=== PATIENT | female | born 1955 | race Caucasian/White ===

== ENCOUNTER → 2017-05-13 14:12 | Outpatient (CLI) | payer BC, SELFPAY | PROVIDERS: Family Provider Family Medicine; PCP Family Medicine; Visit Provider Physician Assistant Medical | DX: J02.9 Acute pharyngitis, unspecified (principal) | CPT/HCPCS: 87081 ==

== ENCOUNTER → 2017-07-19 09:15 | Outpatient (CLI) | payer BC, SELFPAY ==
--- NOTE | 2017-07-19 09:25 | RAD_ITS ---
Procedure: Fluoroscopically guided dedicated esophagram including frontal and lateral views of the pharynx/larynx. INDICATIONS: Dysphagia. Patient states it feels like there is a lump in the throat constantly. Atrial syndrome surgery in 2010. TECHNIQUE: The patient easily and readily swallowed effervescent crystals, various density barium and a 12 mm barium pill. FINDINGS: Esophageal motility is normal. There is no esophageal stricture, web or diverticulum. There is no hiatal hernia. No free reflux was observed during the course of the real-time exam. The esophageal mucosal pattern appears normal. Frontal and lateral dedicated cine evaluation of the pharynx/larynx demonstrate symmetric transit of the contrast bolus. There is no mass or mass effect. The mucosal pattern appears normal. The 12 mm barium pill transited easily through the esophagus into the stomach. RAD/Esophagus Only IMPRESSION: No fluoroscopically evident pathology. Fluoroscopy time less than 1 minute. Electronically Signed: Dilshad Cooper MD at 10:50 EDT , Service support ,
== END ==
PROVIDERS: Family Provider Family Medicine; PCP Family Medicine; Visit Provider Otolaryngology
DX: R13.10 Dysphagia, unspecified (principal)
CPT/HCPCS: 74220

== ENCOUNTER → 2018-02-12 12:24 | Outpatient (CLI) | payer BC, SELFPAY ==
--- NOTE | 2018-02-12 12:27 | BI_ITS ---
MAMMOGRAPHY - BILATERAL SCREENING REASON FOR EXAM: Female, 62 years old. Routine annual screening examination. PERTINENT HISTORY: Non-contributory. TECHNIQUE: Digital bilateral breast richard (3D mammographic acquisition) in the CC and MLO projections. 2-D mediolateral oblique (MLO) and craniocaudad (CC) views of both breasts were obtained. CAD: Full Field Digital Mammography with Computer Added Detection was performed. COMPARISON: Comparison is made with prior outside examination dated November 18, 2016. FINDINGS: Breast Composition: There are scattered areas of fibroglandular density. There are no dominant masses or suspicious calcifications. Stable 6.1 mm x 6.1 mm well-defined nodule in the axillary region of the right breast in keeping with a small benign appearing axillary lymph nodes. No other significant abnormalities are identified. There has been no significant change since the prior study. BI/SCREENING MAMM (CAD), BILAT IMPRESSION: Stable bilateral screening mammogram. Yearly follow-up mammogram recommended. (A) ASSESSMENT CATEGORY: BIRADS Category 2: Benign. A letter regarding these results will be sent to the patient by the facility within 30 days. Approximately 10% of breast cancers are not detected by mammography. A normal mammogram should not delay biopsy of a clinically suspicious abnormality. [id number] Electronically Signed: Nathan Hernandez MD at 9:23 EST Tel [phone], Service support ,
== END ==
PROVIDERS: Family Provider Family Medicine; PCP Family Medicine; Referring Provider Obstetrics & Gynecology; Visit Provider Obstetrics & Gynecology
DX: Z12.31 Encounter for screening mammogram for malignant neoplasm of breast (principal)
CPT/HCPCS: 77063; 77067

== ENCOUNTER → 2018-09-04 16:10 | Outpatient (CLI) | payer BC, SELFPAY ==
--- NOTE | 2018-09-04 16:45 | MRI_ITS ---
HISTORY: Lumbar radiculopathy COMPARISON: None. TECHNIQUE: Multisequence multiplanar MR imaging of the lumbar spine was performed per department protocol without IV gadolinium. # of images incl. paperwork: 123 FINDINGS: Transitional lumbosacral anatomy with lumbarized S1 vertebra. Lumbar alignment is within normal limits . No acute fracture or subluxation. Lumbar vertebral bodies are normal in height. Vertebral bodies are unremarkable without significant osteophytosis. No focal marrow signal abnormality to suggest a pathologic process. The conus is identified opposite the L1 level and is normal in morphology and signal characteristics. Mild disc space narrowing with mild disc desiccation at the L4-L5 level. Remaining intervertebral discs are adequate in height and hydration. T12-L1: No disc bulge or disc protrusion. No canal or neural foraminal stenosis. L1-2: No disc bulge or disc protrusion. No canal or neural foraminal stenosis. L2-3: No disc bulge or disc protrusion. No canal or neural foraminal stenosis. L3-4: No disc bulge or disc protrusion. No canal or neural foraminal stenosis. L4-5: Mild posterior disc bulge with 1 mm effacement of the ventral thecal sac. No superimposed disc protrusion. No canal or foraminal stenosis. L5-S1: Mild disc bulge which moderately effaces the ventral epidural fat. No canal or foraminal stenosis. Paravertebral soft tissues show no gross signal abnormalities. MRI/Spine Lumbar (Routine) IMPRESSION: 1. Transitional lumbosacral anatomy with lumbarized S1 vertebra. 2. No canal or foraminal stenosis of lumbar spine. 3. Mild disc bulges at L4-L5 and L5-S1 levels. Otherwise, no significant degenerative changes. at [id number] Reported and signed by: Hector Dale MD Electronically Signed: Hector Dale MD at 3:21 EDT Tel , Service support ,
== END ==
PROVIDERS: Family Provider Family Medicine; PCP Family Medicine; Referring Provider Chiropractor; Visit Provider Chiropractor
DX: M54.16 Radiculopathy, lumbar region (principal)
CPT/HCPCS: 72148

== ENCOUNTER 2018-10-05 19:30 | Observation (INO) | payer BC, SELFPAY ==
[2018-10-05 19:33] VITALS: BP 137/76; PULSE 76; RESP 20; TEMP 36.7; O2SAT 97; BMI 28.1
--- NOTE | 2018-10-05 20:11 | EKG12_ITS ---
Test Reason : POSSIBLE STEMI Blood Pressure : / mmHG Vent. Rate : 076 BPM Atrial Rate : 076 BPM P-R Int : 148 ms QRS Dur : 084 ms QT Int : 382 ms P-R-T Axes : 046 028 038 degrees QTc Int : 429 ms Normal sinus rhythm Normal ECG Confirmed by SORAYA CLOUD, BROCK ([id number]), fan mail editor YAYO WEBER ([id number]) on 10/09/2018 2:18:12 PM Referred By: CYNTHIA Confirmed By:BROCK LIRA MD
[2018-10-05 20:23] LABS: Absolute Lymphocyte Count 2.43 X10^3/ul (0.83-4.51); Absolute Neutrophil Count 5.1 X10^3/uL (2.0-7.7); Basophil# 0.03 X10^3/uL; Basophil% 0.3 % (0-1); Eosinophil# 0.56 X10^3/uL; Eosinophils% 6.5 % (0-5); Hematocrit 40.8 % (37-47); Hemoglobin 13.4 g/dl (12.0-15.0); Lymphocyte # 2.43 X10^3/ul (4.0); Lymphocyte % 28.3 % (19-41); Mean Corp Hgb Conc 32.8 g/gl (32-36); Mean Corpuscular Hgb 28.3 pg (27.0-32.0); Mean Corpuscular Volume 86.1 fL (81-99); Mean Platelet Vol. 9.5 fl (6.2-12.0); Monocyte# 0.45 X10^3/uL; Monocyte% 5.2 % (0-10); Neutrophil % 59.6 % (47-70); POSITIVE COUNT NO; POSITIVE DIFFERENTIAL NO; POSITIVE MORPHOLOGY NO; Platelet Count 298 K/mm3 (150-450); RBC Distribution Width CV 12.4 % (11.6-14.6); RBC Distribution Width SD 38.1 fl (35.1-43.9); Red Blood Count 4.74 M/mm3 (4.2-5.4); White Blood Count 8.6 K/mm3 (4.4-11.0)
[2018-10-05 20:54] LABS: Anion Gap 8 (5-15); BUN 17 mg/dL (7-18); BUN/Creat Ratio 14.9 RATIO (10-20); Calcium,Total 8.9 mg/dL (8.5-10.1); Chloride 101 mmol/L (98-107); Creatinine, Serum 1.14 mg/dL (0.55-1.02); EST Glomerular Filtration Rate 51 mL/min (>60); Est Glom Filt Rate - Afr Amer 62 mL/min (>60); Estimated Creatinine Clearance 44.18 ml/min; Glucose 175 mg/dL (74-106); Potassium 3.4 mmol/L (3.5-5.1); Sodium Level 135 mmol/L (136-145)
[2018-10-05 21:09] VITALS: BP 132/60; BP 145/73; BP 146/62; PULSE 71; PULSE 77; PULSE 85
[2018-10-05] MEDS: 0.9% Normal Saline 1,000 ML 1000 ML IV (21:10)
--- NOTE | 2018-10-05 21:23 | ED.VISSUMM ---
- ER Visit Summary Date of Service: 10/05/18 Chief Complaint: [Syncope] History of Present Illness: The patient is a 63 F [once to the emergency department with a syncopal episode. Patient was at dinner and had just finished eating. Patient has had a half a glass of wine. Patient remembers feeling quite hot and became sweaty and nauseated and passed out. No seizure-like activity noted. Patient did wake up after a few moments and was a little slow to answer. Arrival she just describes will be an upset stomach. She has a mild headache. She is never had syncopal episode like this before. Patient does have a history of hypertension. She denies any chest pain or shortness of breath. She denies any racing heart or palpitations prior to this episode. She denies any painful stimulus.] Physical Examination: [HEENT-PERRLA, EOMI. Cranial nerves II through XII grossly intact. TMs clear. Mucous membranes moist. No adenopathy. Cardiovascular-regular rate and rhythm without murmur or ectopy Lungs-clear to auscultation, chest wall stable without crepitus or subcu emphysema Abdomen-normoactive bowel sounds, soft, nontender, no rebound or rigidity, no peritoneal signs. Extremities-intact ?4, normal range of motion, normal pulses, atraumatic] Test Results: [EKG obtained arrival shows sinus rhythm with a ventricular rate 76 bpm with no acute segment changes. CBC with differential was normal. Chemistries unremarkable. Troponin was less than 0.15.] Orthostatic vital signs were negative. Emergency Department Course and Treatment: [Patient had an IV line established and she was given a liter normal same fluid bolus.] Treatment Plan: [Admit for observation] Disposition: [Admit] Impression: [Syncope-etiology uncertain] This note was generated with [employer] software. It may contain incorrect words, spelling, and punctuation that were not noted in review of the chart prior to signing ED Disposition - Plan for ED Patient: Referrals: Bridger Hillman III, MD [Primary Care Provider] -
[2018-10-05 21:43] VITALS: BP 130/64; PULSE 70; RESP 19; O2SAT 96
[2018-10-05 22:26] VITALS: PULSE 75
--- NOTE | 2018-10-05 22:26 | HP.PCM_ITS ---
Problem List (1) Syncope Status: Acute Qualifiers: Syncope type: vasovagal syncope Qualified Code(s): R55 - Syncope and collapse (2) Hypertension Status: Chronic Qualifiers: Hypertension type: essential hypertension Qualified Code(s): I10 - Essential (primary) hypertension History of Present Illness Date of Admission: 10/05/18 Chief Complaint: Syncope The patient is a 63 year old F with PMHx of Hypertension, who presents with a syncopal episode. She has never had anything like that. She was in her usual state of health and L2 in a restaurant with her family. She had a honey mustard chicken meal. She drank a half a glass of wine. She suddenly felt flushed, dizzy and passed out. She passed out for about 2 to 3 minutes. When she came up she knew where she was. No seizure-like activity noted. Patient denies feeling unwell prior to passing out. She denied being in the sun for a long time. Vitals in the ED showed patient 98.1F, heart rate 76, blood pressure 137/76, respiratory rate is 20, SPO2 is 97% on room air. Admitting blood work showed unremarkable CBC D. Sodium was 135, potassium 3.4, BUN 17, creatinine 1.14, chloride 101, bicarbonate 26, glucose 175. EKG showed normal sinus rhythm Past Medical History Past Medical History (Chronic Problems): Chronic Problems (Last Updated 05/13/17 @ 09:07 by Sera Camara) Hypertension (Chronic) Medical History: Medical History (Last Updated 05/13/17 @ 09:07 by Sera Camara) HTN (hypertension) I10 Allergies No Known Allergies Allergy (Verified 10/05/18 19:38) Home Medications: Ambulatory Orders Medication Instructions Recorded Losartan/Hydrochlorothiazide 1 tab PO DAILY 10/05/18 [Losartan-Hctz 50-12.5 mg Tab] Surgical History: tonsillectomy, - - Bilateral tubal ligation Psychiatric History: No pertinent psych hx RESPIRATORY THERAPY AIDE History: No pertinent RESPIRATORY THERAPY AIDE history Lives: Spouse/ Significant Other Smoking Status: Never smoker Tobacco Use: Non-smoker Alcohol: Occasional Drugs: None - *Family History Maternal History Items: No pertinent history Paternal History Items: No pertinent history Review of Systems Constitutional: Denies: Anorexia, Chills, Fever, Malaise, Weakness, Weight Change, Fatigue Eyes: Denies: Blurred vision, Cataracts, Conjunctivae Inflammation, Pain, Redness, Vision Change HEENT: Denies: Difficulty Hearing, Difficulty Swallowing, Head Aches, Hearing Changes, Sinus Congestion, Sinus Drainage, Sore Throat Cardiovascular: Denies: Chest Pain, Claudication, Orthopnea, Palpitations, Paroxysmal Noc. Dyspnea Respiratory: Denies: Cough, Hemoptysis, Shortness of breath at rest, Shortness of breath upon exertion, Sputum production Gastrointestinal: Denies: Abdominal Pain, Constipation, Hematemesis, Hematochezia, Nausea, Vomiting Genitourinary: Denies: Dysuria, Frequency Musculoskeletal: Denies: Joint Pain, Joint stiffness, Joint swelling, Joint Tenderness Skin: Denies: Pruritis, Rash, Wounds Neurological: Denies: Difficulty swallowing, Focal weakness, Numbness, Tingling Psychiatric: Denies: Anxiety, Depression, Homicidal Ideations, Suicidal Ideations Hematologic/ Lymphatic: Denies: Easy Bruising, Easy Bleeding VTE Information - Inpt Only VTE Present on Admission: No VTE Pharm Prophylaxis ordered?: Yes Patient Problems: Active and Suspected Problems (Last Updated 05/13/17 @ 09:07 by Sera Camara) Syncope (Acute) - Physical Exam General: Alert, Oriented x3, Cooperative, No apparent distress HEENT: Atraumatic, PERRLA, EOMI, Normocephalic Oral: Moist Mucosa Neck: Supple Lungs: Clear to auscultation, Normal air movement Cardiovascular: Regular rate, Regular Rhythm, Normal S1, Normal S2, No murmurs Abdomen: Bowel Sounds Present, Soft, Non Tender, Non-Distended, No Hepato- splenomegaly Extremities: No edema Skin: No rashes, No breakdown Musculoskeletal: No Tenderness to Palpation of Joints or Extremities Lymphatic: No Cervical, Supraclavicular, or Inguinal Adenopathy Neurological: Cranial nerves II-XII grossly intact, Neuro grossly intact Psych/Mental Status: Normal Affect, Appropriate Vital Signs Temp Pulse Resp BP Pulse Ox 98.1 F 70 19 H 130/64 H 96 10/05/18 19:33 10/05/18 21:43 10/05/18 21:43 10/05/18 21:43 10/05/18 21:43 Oxygen Delivery Method Room Air Weight: 74.5 kg Body Mass Index (BMI) 28.1 Laboratory Tests Past 24 Hrs 10/05/18 10/05/18 19:35 19:35 WBC 8.6 RBC 4.74 Hgb 13.4 Hct 40.8 MCV 86.1 MCH 28.3 MCHC 32.8 RDW 12.4 RDW Differential 38.1 Plt Count 298 MPV 9.5 Immature Gran % (Auto) 0.100 Neut % (Auto) 59.6 Lymph % (Auto) 28.3 [place] % (Auto) 5.2 Eos % (Auto) 6.5 H Baso % (Auto) 0.3 Absolute Neuts (auto) 5.1 Absolute Lymphs (auto) 2.43 Total Counted Not Reportable Sodium 135 L Potassium 3.4 L Chloride 101 Carbon Dioxide 26.0 Anion Gap 8 BUN 17 Creatinine 1.14 H Estim Creat Clear Calc 44.18 Est GFR (MDRD) Af Amer 62 Est GFR (MDRD) Non-Af 51 L BUN/Creatinine Ratio 14.9 Glucose 175 H Calcium 8.9 Troponin I < 0.015 Assessment/Plan All Active Problems (Last Updated 05/13/17 @ 09:07 by Sera Camara) Syncope (Acute) 63 year old F with PMHx of Hypertension, who presents with a syncopal episode while in the restaurant. 1. Syncope, likely vasovagal, vitals are stable. EKG shows no acute ST-T changes. Plan: Admit to PCU, monitor on telemetry, gentle IV fluids, trend troponins, 2D echo, orthostatic vitals per Shift 2. Hypokalemia, replaced, would also check for magnesium 3. Acute kidney injury, likely prerenal, patient is on losartan and hydrochlorothiazide, will hold that, continue on IV fluids, Repeat blood work in the a.m. 4. Hypertension, on losartan/hydrochlorothiazide, will hold due to account of #3, continue to monitor vitals, hydralazine as needed 5. DVT prophylaxis with early ambulation Code Visit OBSV E&M: 93000 Initial observation care L3
[2018-10-05 22:30] VITALS: BP 136/64; PULSE 73; RESP 14; TEMP 36.5; O2SAT 96
[2018-10-05 22:35] VITALS: BP 136/64; BP 158/66; BP 168/72; PULSE 74; PULSE 77; PULSE 79
[2018-10-05 22:37] VITALS: BMI 27.1
[2018-10-05 22:43] VITALS: BMI 27.1
[2018-10-05] MEDS: Acetaminophen 325 MG Tablet 650 MG PO (22:58)
[2018-10-05 23:27] LABS: Magnesium 1.9 mg/dL (1.6-2.6)
[2018-10-05] MEDS: 0.9% Normal Saline 1,000 ML 100 ML IV (23:36)
[2018-10-06] VITALS (7 sets, daily range): BP systolic 127–148; BP diastolic 57–81; PULSE 63–83; RESP 16–18; TEMP 36.6–36.7; O2SAT 96–100
--- NOTE | 2018-10-06 05:55 | ECHOD_ITS ---
Reason For Study: Syncope/Near Syncope Procedure This was a 2D Doppler, Color Flow transthoracic echocardiogram. Exam performed portable in patient room. Left Ventricle Normal LV size. The estimated ejection fraction is 60 %. Stage 1 diastolic dysfunction. No regional wall motion abnormalities noted. Right Ventricle Normal RV size. Normal systolic function. Atria Normal left atrium. Normal right atrium. Mitral Valve Normal mitral valve. Tricuspid Valve Normal tricuspid valve. Mild tricuspid valve insufficiency. Pulmonary artery systolic pressure is 19 mmHg. Aortic Valve Normal aortic valve. Pulmonic Valve Normal pulmonic valve. Great Vessels Normal aortic root. The pulmonary artery is normal size. Normal inferior vena cava. Pericardium/Pleural No pericardial effusion. MMode/2D Measurements & Calculations LVIDd: 3.8 cm IVSd: 1.0 cm Ao root diam: 2.9 cm LVIDs: 2.6 cm LVPWd: 0.90 cm RVDd: 3.5 cm FS: 31.4 % LAV(MOD-bp): 40.1 ml LVAd ap4: 18.1 cm2 SV(MOD-sp4): 27.8 ml LAV(MOD-bp) Indexed: 22.6 ml/m2 EDV(MOD-sp4): 40.1 ml LAV(MOD-sp2): 49.2 ml EDV(sp4-el): 40.7 ml LAV(MOD-sp4): 29.6 ml LVAs ap4: 8.6 cm2 ESV(MOD-sp4): 12.3 ml ESV(sp4-el): 12.4 ml EF(MOD-sp4): 69.3 % EF(sp4-el): 69.4 % SV(sp4-el): 28.2 ml LA A4 area: 13.9 cm2 LA dimension(2D): 3.0 cm RA A4 area: 11.6 cm2 Doppler Measurements & Calculations MV E max serjio: 90.2 cm/sec Lat Peak E' Serjio: 9.0 cm/sec Med Peak E' Serjio: 7.9 cm/sec MV A max serjio: 100.0 cm/sec E/E' lat: 10.1 E/E' med: 11.4 MV E/A: 0.90 Ao V2 max: 118.4 cm/sec LV V1 max: 93.2 cm/sec PA V2 max: 72.5 cm/sec Ao max P.6 mmHg LV V1 max P.5 mmHg Ao V2 mean: 74.4 cm/sec Ao mean P.5 mmHg Ao V2 VTI: 25.6 cm TR max serjio: 191.0 cm/sec TR max P.6 mmHg Interpretation Summary Normal LV size. The estimated ejection fraction is 60 %. Stage 1 diastolic dysfunction. Structurally normal valves. Ordering Physician: Krista Villeda Referring Physician: Bridger Hillman Performed By: Loan Pond RDCS, RVT
[2018-10-06] MEDS: Magnesium Sulfate 1 GM in 0.9% Normal Saline 100 ML IV (07:10)
[2018-10-06 07:12] LABS: Anion Gap 10 (5-15); BUN 16 mg/dL (7-18); Calcium,Total 8.4 mg/dL (8.5-10.1); Chloride 110 mmol/L (98-107); EST Glomerular Filtration Rate 77 mL/min (>60); Est Glom Filt Rate - Afr Amer 93 mL/min (>60); Estimated Creatinine Clearance 62.96 ml/min; Glucose 114 mg/dL (74-106); Sodium Level 144 mmol/L (136-145)
[2018-10-06] MEDS: 0.9% Normal Saline 1,000 ML 100 ML IV (12:11)
--- NOTE | 2018-10-06 13:52 | PN_ITS ---
Patient Problems: Active and Suspected Problems (Last Updated 05/13/17 @ 09:07 by Sera Camara) Syncope (Acute) Subjective: He was better. Patient said that she was not feel well when she was eating her chicken which was just had an odd taste to her today and was too sweet. No further events since she is been here. Never any other events like this before. Vitals/I&O's: Vital Signs Temp Pulse Resp BP Pulse Ox 36.7 C 65 18 148/69 H 97 10/06/18 09:15 10/06/18 09:15 10/06/18 09:15 10/06/18 09:15 10/06/18 09:15 Oxygen Delivery Method Room Air Weight: 71.7 kg Body Mass Index (BMI) 27.1 Orthostatic Vital Signs Start: 10/05/18 22:31 Freq: q24h Status: Active Protocol: Activity Type Activity Date Activity User E-Sign Co-Sign Detail Recorded Client Recorded Date Recorded By Document 10/06/18 04:37 AR [id number] 10/06/18 04:41 AR 10/06/18 04:37 Orthostatic Vitals Standing -Blood Pressure (90/60-120/80) 131/61 H -Extremity Use Left Arm -Pulse Rate (60-100) 73 Sitting -Blood Pressure (90/60-120/80) 127/57 H -Extremity Use Left Arm -Pulse Rate (60-100) 74 Lying -Blood Pressure (90/60-120/80) 132/62 H -Extremity Use Left Arm -Pulse Rate (60-100) 63 Intake and Output for Last 24 Hours 10/04/18 10/05/18 10/06/18 23:59 23:59 23:59 Intake Total 480 / 480 190 / 190 Balance 480 / 480 [id number] General: Alert, No apparent distress HEENT: Atraumatic, Normocephalic Oral: Moist Mucosa, No Gingival or Mucosal Lesions/ Ulcerations Neck: No Nodes, Thyroid Normal Size and Texture Lungs: Clear to auscultation, Normal air movement, No rhonchi, No wheeze, No rales Cardiovascular: Regular rate, Regular Rhythm, Normal S1, Normal S2, No murmurs Abdomen: Bowel Sounds Present, Soft, Non Tender, Non-Distended, No Hepato- splenomegaly Extremities: No edema, No Calf Tenderness Psych/Mental Status: Normal Affect, Appropriate Laboratory Results 10/05/18 19:35: WBC 8.6, RBC 4.74, Hgb 13.4, Hct 40.8, MCV 86.1, MCH 28.3, MCHC 32.8, RDW 12.4, RDW Differential 38.1, Plt Count 298, MPV 9.5, Immature Gran % (Auto) 0.100, Neut % (Auto) 59.6, Lymph % (Auto) 28.3, [place] % (Auto) 5.2, Eos % (Auto) 6.5 H, Baso % (Auto) 0.3, Absolute Neuts (auto) 5.1, Absolute Lymphs (auto) 2.43, Total Counted Not Reportable 10/05/18 19:35: Sodium 135 L, Potassium 3.4 L, Chloride 101, Carbon Dioxide 26.0, Anion Gap 8, BUN 17, Creatinine 1.14 H, Estim Creat Clear Calc 44.18, Est GFR (MDRD) Af Amer 62, Est GFR (MDRD) Non-Af 51 L, BUN/Creatinine Ratio 14.9, Glucose 175 H, Calcium 8.9, Troponin I < 0.015 10/05/18 23:00: Magnesium 1.9 10/05/18 23:00: Troponin I < 0.015 10/06/18 02:00: Troponin I < 0.015 10/06/18 02:00: Sodium 144, Potassium 4.0, Chloride 110 H, Carbon Dioxide 24.0, Anion Gap 10, BUN 16, Creatinine 0.80, Estim Creat Clear Calc 62.96, Est GFR (MDRD) Af Amer 93, Est GFR (MDRD) Non-Af 77, BUN/Creatinine Ratio 20.0, Glucose 114 H, Calcium 8.4 L Current Medications Sodium Chloride () 1,000 mls @ 100 mls/hr IV .Q10H ELEANOR Last Admin: 10/06/18 12:11 Dose: 100 mls/hr Documented by: Magnesium Hydroxide (Milk Of Magnesia) 30 ml PO DAILY PRN PRN Reason: Constipation Ondansetron HCl (Zofran) 4 mg IV Q8H PRN PRN PRN Reason: NAUSEA/VOMITING Sodium Chloride () 10 - 40 ml IV UD PRN PRN Reason: SALINE FLUSH Medical Necessity - Tobacco Use Smoking Status: Never smoker Tobacco Use: Non-smoker Assessment/Plan All Active Problems (Last Updated 05/13/17 @ 09:07 by Sera Camara) Syncope (Acute) 1. Syncope Likely vasovagal related to eating some of the just did not taste right to her plus some mild dehydration and possibly alcohol as well. I did advise any change to her therapy moving forward being this is isolated event and likely the etiology is multifactorial. Echocardiogram performed and results which are still pending at this time but if that is normal then anticipate the patient being discharged today. Code Visit OBSV E&M: 00579 Subsequent observation care L2
--- NOTE | 2018-10-06 13:54 | DCINST_ITS ---
- Discharge Diagnoses Current Active Problems: Current Active and Chronic Problems (Last Updated 05/13/17 @ 09:07 by Sera Camara) Syncope (Acute) Hypertension (Chronic) You will use the following diet at home:: No restrictions Your food should be the consistency of: Regular Your liquids should be the consistency of: Regular/Thin Call your doctor if you observe: Fainting spells Allergies/Adverse Reactions: Allergies No Known Allergies Allergy (Verified 10/05/18 19:38) Medications to take at Discharge Losartan/Hydrochlorothiazide [Losartan-Hctz 50-12.5 mg Tab] 1 tab PO DAILY 0 10/05/18 Primary Care Physician: Bridger Hillamn III, MD [Primary Care Provider] - Within 1 Week Test Results: Test results from this visit will be discussed in further detail at your follow- up appointment, if applicable. Proposed Discharge Date: 10/06/18
--- NOTE | 2018-10-06 13:56 | PCM.DC.SUM ---
Discharge Date and Diagnosis - Problem List Patient Problems: Active and Suspected Problems (Last Updated 05/13/17 @ 09:07 by Sera Camara) Syncope (Acute) Date of Admission: 10/05/18 Date of Discharge: 10/06/18 - Primary Discharge Diagnosis Active and Suspected Problems (Last Updated 05/13/17 @ 09:07 by Sera Camara) Syncope (Acute) - Secondary Discharge Diagnosis Chronic Problems (Last Updated 05/13/17 @ 09:07 by Sera Camara) Hypertension (Chronic) Hospital Course and Treatment Imaging Results: 10/06/18 05:55 Echo Complete [ECHO] AM (NON MEDS) Operations: None Procedures: 2-D Echocardiogram Summary of Care Provided: The patient is a 63 year old F sense of syncope while at a restaurant. Patient was eating chicken that did not taste her right to her. Patient was out for couple minutes no tonic-clonic activity was noted. Patient was evaluated, and orthostatic vital signs and work-up was thus far negative. Echocardiogram was performed results of which are still pending at time of this dictation. I feel the etiology of her syncope is multifactorial, possibly with a eating so that just did not sit right with her plus some dehydration and some alcohol although patient states she only drank part of a glass of wine. If echocardiogram is unremarkable, plan is for the patient be discharged home without any additional work-up necessary at this time. [] Patient Problems: Active and Suspected Problems (Last Updated 05/13/17 @ 09:07 by Sera Camara) Syncope (Acute) - Physical Exam Vital Signs Temp Pulse Resp BP Pulse Ox 36.7 C 65 18 148/69 H 97 10/06/18 09:15 10/06/18 09:15 10/06/18 09:15 10/06/18 09:15 10/06/18 09:15 Oxygen Delivery Method Room Air Weight: 71.7 kg Body Mass Index (BMI) 27.1 Orthostatic Vital Signs Start: 10/05/18 22:31 Freq: q24h Status: Active Protocol: Activity Type Activity Date Activity User E-Sign Co-Sign Detail Recorded Client Recorded Date Recorded By Document 10/06/18 04:37 AR [id number] 10/06/18 04:41 AR 10/06/18 04:37 Orthostatic Vitals Standing -Blood Pressure (90/60-120/80) 131/61 H -Extremity Use Left Arm -Pulse Rate (60-100) 73 Sitting -Blood Pressure (90/60-120/80) 127/57 H -Extremity Use Left Arm -Pulse Rate (60-100) 74 Lying -Blood Pressure (90/60-120/80) 132/62 H -Extremity Use Left Arm -Pulse Rate (60-100) 63 Intake and Output for Last 24 Hours 10/04/18 10/05/18 10/06/18 23:59 23:59 23:59 Intake Total 480 / 480 1906 / 1906 Balance 480 / 480 1906 / 1906 Laboratory Tests Past 24 Hrs 10/05/18 10/05/18 10/05/18 19:35 19:35 23:00 WBC 8.6 RBC 4.74 Hgb 13.4 Hct 40.8 MCV 86.1 MCH 28.3 MCHC 32.8 RDW 12.4 RDW Differential 38.1 Plt Count 298 MPV 9.5 Immature Gran % (Auto) 0.100 Neut % (Auto) 59.6 Lymph % (Auto) 28.3 [place] % (Auto) 5.2 Eos % (Auto) 6.5 H Baso % (Auto) 0.3 Absolute Neuts (auto) 5.1 Absolute Lymphs (auto) 2.43 Total Counted Not Reportable Sodium 135 L Potassium 3.4 L Chloride 101 Carbon Dioxide 26.0 Anion Gap 8 BUN 17 Creatinine 1.14 H Estim Creat Clear Calc 44.18 Est GFR (MDRD) Af Amer 62 Est GFR (MDRD) Non-Af 51 L BUN/Creatinine Ratio 14.9 Glucose 175 H Calcium 8.9 Magnesium 1.9 Troponin I < 0.015 10/05/18 10/06/18 10/06/18 23:00 02:00 02:00 WBC RBC Hgb Hct MCV MCH MCHC RDW RDW Differential Plt Count MPV Immature Gran % (Auto) Neut % (Auto) Lymph % (Auto) [place] % (Auto) Eos % (Auto) Baso % (Auto) Absolute Neuts (auto) Absolute Lymphs (auto) Total Counted Sodium 144 Potassium 4.0 Chloride 110 H Carbon Dioxide 24.0 Anion Gap 10 BUN 16 Creatinine 0.80 Estim Creat Clear Calc 62.96 Est GFR (MDRD) Af Amer 93 Est GFR (MDRD) Non-Af 77 BUN/Creatinine Ratio 20.0 Glucose 114 H Calcium 8.4 L Magnesium Troponin I < 0.015 < 0.015 Discharge Diet: No Restrictions Call your doctor if you observe: Fainting spells Home Medications: Medications to take at Discharge Losartan/Hydrochlorothiazide [Losartan-Hctz 50-12.5 mg Tab] 1 tab PO DAILY 10/05/18 Primary Care Physician: Bridger Hillman III, MD [Primary Care Provider] - Within 1 Week Disposition: Home Minutes spent on discharge:: 25 Patient Condition:: Good Medical Necessity - Tobacco Use Smoking Status: Never smoker Tobacco Use: Non-smoker Meaningful Use Info Meaningful Use Diagnoses (Choose all that apply): None applicable Code Visit OBSV E&M: 44796 Observation care discharge
== END 2018-10-06 13:55 | disposition home or self-care (01) ==
LOC: ED 20:24 → PCU 21:35
PROVIDERS: Admitting Provider Internal Medicine; Emergency Provider Emergency Medicine; Family Provider Family Medicine; PCP Family Medicine
DX: R55 Syncope and collapse (principal); I10 Essential (primary) hypertension; E86.0 Dehydration; E87.6 Hypokalemia; N17.9 Acute kidney failure, unspecified; Z79.899 Other long term (current) drug therapy
CPT/HCPCS: 36415; 80048; 83735; 84484; 85025; 93005; 93306; 96360; 96361; 99218; 99285; J7030; A4216; G0378

== ENCOUNTER → 2019-03-11 10:29 | Outpatient (CLI) | payer BC, SELFPAY ==
[2019-03-11 12:28] LABS: Absolute Lymphocyte Count 1.75 X10^3/uL (0.83-4.51); Absolute Neutrophil Count 3.2 X10^3/uL (2.0-7.7); Basophil# 0.04 X10^3/uL; Basophil% 0.7 % (0-1); Eosinophil# 0.28 X10^3/uL; Eosinophils% 4.9 % (0-5); Hematocrit 42.2 % (37-47); Hemoglobin 13.8 g/dL (12.0-15.0); Lymphocyte # 1.75 X10^3/ul (4.0); Lymphocyte % 30.9 % (19-41); Mean Corp Hgb Conc 32.7 g/dL (32-36); Mean Corpuscular Hgb 28.8 pg (27.0-32.0); Mean Corpuscular Volume 88.1 fL (81-99); Mean Platelet Vol. 10.6 fl (6.2-12.0); Monocyte# 0.42 X10^3/uL; Monocyte% 7.4 % (0-10); NRBC Flagged by Analyzer 0 % (0-5); Neutrophil # 3.16 X10^3/uL (2.7-7.7); Neutrophil % 55.9 % (47-70); POSITIVE COUNT YES; Platelet Count 292 K/mm3 (150-450); RBC Distribution Width SD 38.7 fl (35.1-43.9); Red Blood Count 4.79 M/mm3 (4.2-5.4); White Blood Count 5.7 K/mm3 (4.4-11.0)
[2019-03-11 12:33] LABS: Differential Indicated SCAN CRITERIA MET
[2019-03-11 13:03] LABS: Rheumatoid Factor < 10.0 IU/mL (<15)
[2019-03-11 13:04] LABS: Platelet Estimate ADEQUATE (ADEQ); Red Cell Morphology NORM C+C NORMAL (NORM C&C)
[2019-03-12 16:07] LABS: Cytoplasmic Ab (C-ANCA) <1:20 titer (Neg:<1:20)
[2019-03-12 16:27] LABS: Angiotensin Convert Enzyme 58 U/L (14-82); Perinuclear Ab (P-ANCA) <1:20 titer (Neg:<1:20)
[2019-03-19 16:09] LABS: SJOGREN'S Anti-SS-A test < 0.2; SJOGREN'S Anti-SS-B test < 0.2
== END ==
PROVIDERS: Family Provider Family Medicine; PCP Family Medicine; Referring Provider Otolaryngology; Visit Provider Otolaryngology
DX: K11.7 Disturbances of salivary secretion (principal)
CPT/HCPCS: 36415; 82164; 85025; 86038; 86235; 86256; 86431

== ENCOUNTER → 2019-04-03 11:18 | Outpatient (CLI) | payer BC, SELFPAY ==
[2019-04-03 14:26] LABS: Erythrocyte Sedimentation Rate 7 mm/hr (0-30)
== END ==
PROVIDERS: Family Provider Family Medicine; PCP Family Medicine; Referring Provider Otolaryngology; Visit Provider Otolaryngology
DX: K11.7 Disturbances of salivary secretion (principal)
CPT/HCPCS: 85652

== ENCOUNTER → 2019-05-08 12:48 | Outpatient (CLI) | payer BC, SELFPAY ==
--- NOTE | 2019-05-08 12:52 | BI_ITS ---
MAMMOGRAPHY - BILATERAL SCREENING REASON FOR EXAM: Female, 64 years old. Routine annual screening examination. PERTINENT HISTORY: Non-contributory. TECHNIQUE: Digital bilateral breast jennifer (3D mammographic acquisition) in the CC and MLO projections. 2-D mediolateral oblique (MLO) and craniocaudad (CC) views of both breasts were obtained. CAD: Full Field Digital Mammography with Computer Added Detection was performed. COMPARISON: Comparison is made with prior examination dated February 12, 2018. FINDINGS: Breast Composition: There are scattered areas of fibroglandular density. There are no dominant masses or suspicious calcifications. Stable benign-appearing bilateral axillary lymph nodes. Stable 6.1 mm x 6.1 mm well-defined nodule in the upper deep lateral aspect of the right breast. This most likely represents a small lymph node. No other significant abnormalities are identified. There has been no significant change since the prior study. BI/SCREEN MAMM (CAD) W/JENNIFER BILAT IMPRESSION: Stable bilateral screening mammogram. Yearly follow-up mammogram recommended. (A) ASSESSMENT CATEGORY: BIRADS Category 2: Benign. A letter regarding these results will be sent to the patient by the facility within 30 days. Approximately 10% of breast cancers are not detected by mammography. A normal mammogram should not delay biopsy of a clinically suspicious abnormality. [id number] Electronically Signed: Nathan David, at 14:14 EST , Service support ,
[2019-05-13 09:36] LABS: Age Gdln ACOG Testing 30-65 (.)
[2019-05-13 14:53] LABS: HPV APTIMA, High Risk Negative (Negative)
[2019-05-13 14:54] LABS: HPV Reflexed? YES, CHARGE PATIENT
== END ==
PROVIDERS: PCP Family Medicine; Referring Provider Obstetrics & Gynecology; Visit Provider Obstetrics & Gynecology
DX: Z12.31 Encounter for screening mammogram for malignant neoplasm of breast (principal); Z12.4 Encounter for screening for malignant neoplasm of cervix
CPT/HCPCS: 77063; 77067; 87624; 88175; G0145

== ENCOUNTER → 2020-08-31 | Outpatient (CLI) | payer OTHER, SELFPAY | END | disposition home or self-care (01) | LOC: LABSPEC 15:42 | PROVIDERS: Referring Provider Otolaryngology; Visit Provider Otolaryngology | DX: J02.9 Acute pharyngitis, unspecified (principal) | CPT/HCPCS: 87070 ==

== ENCOUNTER → 2020-10-02 16:43 | Outpatient (CLI) | payer OTHER, SELFPAY ==
--- NOTE | 2020-10-02 16:47 | CT_ITS ---
STUDY: CT SOFT TISSUE NECK WITH CONTRAST REASON FOR EXAM: Female, 65 years old. THROAT PAIN/GERD RADIATION DOSAGE (If Supplied By Facility): CTDIvol = ( 14.80 ) mGy, DLP = ( 454.68 ) mGycm TECHNIQUE: The patient was scanned in a multi-detector CT scanner. High resolution transaxial imaging was performed following intravenous administration of IV 75mL Isovue-370. Sagittal and coronal images were reconstructed. Individualized dose optimization techniques were used for this CT. COMPARISON: None. FINDINGS: The bilateral globes are intact. Visualized brain parenchyma is unremarkable. The bilateral globes are intact. The airway is patent. Epiglottis is of normal contour and size. The bilateral submandibular and parotid glands are intact. No cervical adenopathy is seen. The vascular structures are patent. Tiny hypodense nodules are noted throughout the thyroid gland. Upper lungs are clear. There is mild multilevel cervical spondylosis. CT/Soft Tissue Neck WITH Contrast IMPRESSION: No acute finding in the neck. Multiple tiny thyroid nodules, amenable to further evaluation by ultrasound. Electronically Signed: Lokesh Beavers MD at 16:37 EDT Tel , Service support ,
[2020-10-02 17:00] LABS: CREATININE FINGERSTICK 0.6 mg/dL (0.55-1.02); EGFR FINGERSTICK > 60.0000 mL/min (>60)
== END ==
PROVIDERS: PCP Nurse Practitioner Family; Referring Provider Otolaryngology; Visit Provider Otolaryngology
DX: K21.9 Gastro-esophageal reflux disease without esophagitis (principal); R07.0 Pain in throat
CPT/HCPCS: 70491; Q9967

== ENCOUNTER → 2021-02-08 10:20 | Outpatient (CLI) | payer OTHER, SELFPAY ==
--- NOTE | 2021-02-08 10:23 | BI_ITS ---
MAMMOGRAPHY - BILATERAL SCREENING REASON FOR EXAM: Female, 65 years old. Routine annual screening examination. PERTINENT HISTORY: Non-contributory. TECHNIQUE: Digital bilateral breast jennifer (3D mammographic acquisition) in the CC and MLO projections. 2-D mediolateral oblique (MLO) and craniocaudad (CC) views of both breasts were obtained. CAD: Full Field Digital Mammography with Computer Added Detection was performed. COMPARISON: Comparison is made with prior study dated 05/08/2019 and 02/12/2018. FINDINGS: Breast Composition: There are scattered areas of fibroglandular density. There are no dominant masses or suspicious calcifications. Stable 6 mm nodular density in the deep upper lateral aspect of the right breast suggestive of a small lymph node. Stable small benign appearing bilateral axillary nodes. No other significant abnormalities are identified. There has been no significant change since the prior study. BI/SCRN MAMM (CAD)W/JENNIFER BILAT IMPRESSION: Stable bilateral screening mammogram. Yearly follow-up mammogram recommended. (A) ASSESSMENT CATEGORY: BIRADS Category 2: Benign. A letter regarding these results will be sent to the patient by the facility within 30 days. Approximately 10% of breast cancers are not detected by mammography. A normal mammogram should not delay biopsy of a clinically suspicious abnormality. [id number] Electronically Signed: Nathan Hernandez MD at 11:15 EST , Service support ,
== END ==
PROVIDERS: PCP Nurse Practitioner Family; Visit Provider Student in an Organized Health Care Education/Training Program
DX: Z12.31 Encounter for screening mammogram for malignant neoplasm of breast (principal)
CPT/HCPCS: 77063; 77067

== ENCOUNTER → 2023-12-22 | Outpatient (CLI) | payer MEDICARE, SELFPAY ==
[2023-12-22 16:15] LABS: Absolute Lymphocyte Count 2.55 X10^3/uL (0.83-4.51); Absolute Neutrophil Count 4.1 X10^3/uL (2.0-7.7); Basophil# 0.05 X10^3/uL; Basophil% 0.7 % (0-1); Hematocrit 42.5 % (37-47); Hemoglobin 13.5 g/dL (12.0-15.0); Lymphocyte # 2.55 X10^3/ul (0.83-4.51); Lymphocyte % 33.7 % (19-41); Mean Corp Hgb Conc 31.8 g/dL (32-36); Mean Corpuscular Hgb 28.2 pg (27.0-32.0); Mean Corpuscular Volume 88.7 fL (81-99); Mean Platelet Vol. 9.1 fl (6.2-12.0); Monocyte# 0.56 X10^3/uL; Monocyte% 7.4 % (0-10); NRBC Flagged by Analyzer 0 % (0-5); Neutrophil # 4.08 X10^3/uL (2.7-7.7); Neutrophil % 53.9 % (47-70); Platelet Count 312 K/mm3 (150-450); RBC Distribution Width CV 12.4 % (11.6-14.6); Red Blood Count 4.79 M/mm3 (4.2-5.4); White Blood Count 7.6 K/mm3 (4.4-11.0)
[2023-12-22 16:41] LABS: ALB/GLOB Ratio 1.1 RATIO (0.9-2.4); AST(SGOT) 20 U/L (15-37); Alanine Aminotransfer ALT/SGPT 32 U/L (13-56); Alkaline Phosphatase 83 U/L (45-117); Anion Gap 3 (5-15); BUN 13 mg/dL (7-18); BUN/Creat Ratio 16.1 RATIO (10-20); CRP < 2.90 mg/L (0.0-3.0); Calcium,Total 9.9 mg/dL (8.5-10.1); Chloride 103 mmol/L (98-107); Creatinine, Serum 0.81 mg/dL (0.55-1.02); EST Glomerular Filtration Rate 75 mL/min (>60); Est Glom Filt Rate - Afr Amer 91 mL/min (>60); Free T3 2.7 pg/mL (2.18-3.98); Globulin 3.7 g/dL (2.2-4.2); Glucose 96 mg/dL (74-106); LDH 196 U/L (84-246); Potassium 4.1 mmol/L (3.5-5.1); Protein, Total 7.7 g/dL (6.4-8.2); Sodium Level 135 mmol/L (136-145); T4 Free Direct 0.86 ng/dL (0.76-1.46)
[2023-12-22 16:50] LABS: Erythrocyte Sedimentation Rate 6 mm/hr (0-30)
[2023-12-28 00:06] LABS: ACCA 2 units (0-90); ALCA 8 units (0-60); AMCA 24 units (0-100); Alpha-1-Globulins 0.2 g/dL (0.0-0.4); Alpha-2-Globulins 0.8 g/dL (0.4-1.0); Anti-Centromere B Ab <0.2 AI (0.0-0.9); Anti-Chromatin <0.2 AI (0.0-0.9); Anti-Jo <0.2 AI (0.0-0.9); Anti-Scleroderma-70 AB <0.2 AI (0.0-0.9); Anti-dsDNA Ab 1 IU/mL (0-9); Beef 0.19 kU/L (Class 0/I); Chocolate <0.10 kU/L (Class 0); Codfish <0.10 kU/L (Class 0); Corn 0.37 kU/L (Class I); Cytoplasmic Ab (C-ANCA) <1:20 titer (Neg:<1:20); Egg, Whole 2.27 kU/L (Class III); Endomysial Antibody IgA Negative (Negative); Gamma Globulin 1.1 g/dL (0.4-1.8); Immunoglobulin A 164 mg/dL (87-352); Immunoglobulin E 659 IU/mL (6-495); Immunoglobulin G 1136 mg/dL (586-1602); Immunoglobulin M 107 mg/dL (26-217); Milk (Cow) 1.81 kU/L (Class III); Mussels <0.10 kU/L (Class 0); PROEL- TOTAL PROTEIN 7.2 g/dL (6.0-8.5); Peanut 1.43 kU/L (Class III); Perinuclear Ab (P-ANCA) <1:20 titer (Neg:<1:20); Pork <0.10 kU/L (Class 0); RNP Ab <0.2 AI (0.0-0.9); SJOGREN'S Anti-SS-A test < 0.2 AI (0.0-0.9); SJOGREN'S Anti-SS-B test < 0.2 AI (0.0-0.9); Salmon <0.10 kU/L (Class 0); Shrimp <0.10 kU/L (Class 0); Smith Ab <0.2 AI (0.0-0.9); Soybean 0.71 kU/L (Class II); Tuna <0.10 kU/L (Class 0); Wheat 1.23 kU/L (Class II); gASCA 12 units (0-50); t-Transglutaminase IgA <2 U/mL (0-3)
== END | disposition home or self-care (01) ==
LOC: LAB 15:24
PROVIDERS: PCP Nurse Practitioner Family
DX: K22.4 Dyskinesia of esophagus (principal); E03.9 Hypothyroidism, unspecified
CPT/HCPCS: 36415; 80053; 82784; 82785; 83516; 83615; 84165; 84439; 84443; 84481; 85025; 85652; 86003; 86005; 86036; 86140; 86225; 86235; 86255; 86256; 86334; 86671

== ENCOUNTER 2024-05-28 12:19 | Day surgery (SDC) | payer MEDICARE, SELFPAY ==
--- NOTE | 2024-05-23 21:56 | PAT.ANE_ITS ---
Pre-Assessment Diagnosis/Proposed Procedure Planned Operative Procedure(s): EGD Anesthesia History Anesthesia History - mental health practitioner: Anesthesia History - mental health practitioner Hx Hospitalization No 05/23/24 14:58 Any Problems With Anesthesia No 05/23/24 14:58 Cholinesterase deficiency No 05/23/24 14:58 You/Your Family Experience No 05/23/24 14:58 fever (hyperthermia) with Relationship Recent Exposure to Contagious No 03/02/16 15:55 Disease Does patient have nerve No 05/23/24 14:58 stimulator Patient instructed to have device shut off --Does patient have Pacemaker or ICD? When Was Last Pacemaker Check QUESTION #4 FULL TEXT: You/Your Family Experience fever (hyperthermia) with Anesthesia Last Oral Intake Last Oral intake: Last Oral Intake NPO since Meds taken in AM with sips of water? Meds patient instructed to take am of surgery PONV PONV - mental health practitioner: PONV - mental health practitioner Female Yes 05/23/24 14:58 HX of Motion Sickness No 05/23/24 14:58 HX of N/V After Surgery No 05/23/24 14:58 Non-Smoker Yes 05/23/24 14:58 Duration of Surgery greater No 05/23/24 14:58 than 60 minutes Number of Risk Factors 2 05/23/24 14:58 PONV Score Moderate Risk 05/23/24 14:58 Height & Weight Height & Weight: Anesthesia: Height & Weight Height 5 ft 4 in 08/18/22 09:43 Respiratory Assessment Respiratory Assessment - mental health practitioner: Respiratory Tract Infection Hx - mental health practitioner Hx Respiratory Tract Infection No 05/23/24 14:58 STOP Sleep Apnea STOP Sleep Apnea - mental health practitioner: STOP Sleep Apnea - mental health practitioner Hx Hypertension Yes: per pt, controlled on 05/23/24 14:58 meds Hx Sleep Apnea No 05/23/24 14:58 CPAP BIPAP Do you snore loudly (louder No 05/23/24 14:58 than talking or can be heard Do you often feel tired/ No 05/23/24 14:58 fatigued/ sleepy during daytime? Has anyone observed you stop No 05/23/24 14:58 breathing during sleep? STOP Results Negative 05/23/24 14:58 QUESTION #5 FULL TEXT : Do you snore loudly (louder than talking or can be heard through closed doors)? 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 Specify any problems Hx of Preganancy in last 3 No 05/23/24 14:58 Months Nurse Filling Out Transfusion MGRIALYSSAITH 05/23/24 14:58 & Questions: Date: 05/23/24 05/23/24 14:58 Time: 15:02 05/23/24 14:58 Patient unable to answer at this time (ie. confused, unrespo /Reproduction History /Reproductive History - mental health practitioner: /Reproductive Hx- mental health practitioner Hx Now No 05/23/24 14:58 Gestational Age (in weeks): EDC: Hx Hx Para Hx Section SAB No 05/23/24 14:58 [facility] Medical History (Updated 05/23/24 @ 15:10 by Lanette Rothman) History of echocardiogram Wears glasses High cholesterol Difficulty swallowing Gastric reflux Shortness of breath on exertion Non-smoker Hoarseness [place]'s syndrome History of deviated nasal septum Syncope HTN (hypertension) Home Medications ?Medication ?Instructions ?Recorded ?Last Taken ?Type losartan 50 mg tablet 50 mg PO DAILY 08/18/22 Unkn own History multivitamin 1 tab PO DAILY 08/18/22 Unkn own History omeprazole 40 mg capsule,delayed 40 mg PO DAILY Unknown History release pravastatin 20 mg tablet 20 mg PO QHS 08/18/22 Unknow n History omeprazole 20 mg capsule,delayed 20 mg PO BID #90 caps 03/12/24 Unknown Rx release zicam 3 tab PO DAILY 05/23/24 Unkn own History Allergy/AdvReac Type Severity Reaction Status Date / Time No Known Allergies Allergy Verified 05/23/24 14:54 Surgical History (Updated 05/23/24 @ 14:58 by Lanette Rothman) History of esophagogastroduodenoscopy (EGD) History of colonoscopy History of mandibular surgery Hx of tubal ligation History of carpal tunnel release Hx of appendectomy History of hip surgery Social History Smoking Status: Never smoker alcohol intake: never Audit: Pertinent Findings Pertinent Findings EKG Perinent findings: October 05, 2018. Normal sinus rhythm. Echo (EF%) pertinent findings: October 06, 2018. Ejection fraction 60%. PA systolic pressure is 19 mmHg. No aortic stenosis. Recommendation Anesthesia Recommendation Anesthesia recommendation: OPTIMIZED for anesthesia
[2024-05-28] VITALS (7 sets, daily range): BP systolic 163–193; BP diastolic 75–91; PULSE 68–76; RESP 14–18; TEMP 36.1–36.4; O2SAT 95–100; BMI 26.4
--- NOTE | 2024-05-28 12:44 | HP.PCM_ITS ---
HPI - General General Date of Admission: 05/28/24 Date of Service: 05/28/24 Chief Complaint: dysphagia HPI Narrative KARINA SAEZ, is a 69 F who presents for the endoscopic evaluation of dysphagia. BGI established 9..24 w/ globus sensation. Pt had extensive work up for this in [address] neck, barium swallows and EGD with Olvera w/ no identified etiology. She takes omeprazole daily with no relief in her symptoms. *start amitriptyline *hives form amitriptyline, started baclofen Biochemical work up; CBC wnl, Cmp wnl, IBD wnl, celiac wnl RAST food allergy; Beef .19 H, Rollins .37 H, Cows milk 1.81 H, egg whole 2.27 H, Peanut 1.43 H, Soybean .71 H, wheat 1.23 H OV 12..24 Pt continues with globus sensation feeling in her throat. She trial avoidance of food allergies which did not help. Baclofen, amitriptyline, and om eprazole were not helpful. Last EGD in 2010. She denies heartburn, n/v, constipation. diarrhea or abd pain. [facility] Medical History History of echocardiogram Wears glasses High cholesterol Difficulty swallowing Gastric reflux Shortness of breath on exertion Non-smoker Hoarseness [place]'s syndrome History of deviated nasal septum Syncope HTN (hypertension) Home Medications ?Medication ?Instructions ?Recorded ?Last Taken ?Type losartan 50 mg tablet 50 mg PO DAILY 08/18/22/0 07/19 History multivitamin 1 tab PO DAILY 08/18/22 Unkn own History omeprazole 40 mg capsule,delayed 40 mg PO DAILY Unknown History release pravastatin 20 mg tablet 20 mg PO QHS 08/18/22 Unknow n History omeprazole 20 mg capsule,delayed 20 mg PO BID #90 caps 03/12/24 Unknown Rx release zicam 3 tab PO DAILY 05/23/24 Unkn own History Allergy/AdvReac Type Severity Reaction Status Date / Time No Known Allergies Allergy Verified 05/28/24 12:31 Surgical History History of esophagogastroduodenoscopy (EGD) History of colonoscopy History of mandibular surgery Hx of tubal ligation History of carpal tunnel release Hx of appendectomy History of hip surgery Social History Smoking Status: Never smoker alcohol intake: never ROS Constitutional Constitutional: Denies fatigue, fever(s), poor appetite, weight gain or weight loss Gastrointestinal Gastrointestinal: Denies belching, bloating, change in bowel habits, change in stool character, chewing difficulty, coffee ground emesis, constipation, cramping, diarrhea, dyspepsia, dysphagia, early satiety, excessive flatus, fecal incontinence, heartburn, hematemesis, hematochezia, hemorrhoids, loose stools, melena, nausea, odynophagia, rectal bleeding, tenesmus, vomiting or weight changes Physical Exam Const alert, oriented x3, no apparent distress and healthy appearing General Appearance: cooperative GI normal to inspection, nondistended, normoactive bowel sounds, soft to palpation, non-tender and non-distended Percussion: normal to percussion Rectal Exam: deferred Assessment & Plan Assessment/Plan (1) Esophageal dysfunction: (2) Food allergy: PLAN: Assessment and Plan Assessment and Plan (1) Esophageal dysfunction: Status: Acute Plan: This is a 68 yo female pt here today for f/u. She has had extensive work up in the past and no etiology has been found. Her last EGD was in 2010. Work up did show food allergies. With this in mind, she will need to undergo EGD to assess for EOE or esophageal dysmotility. She will continue PPI in the meantime. -EGD w/ biopsy for EOE -Consider manometry -continue PPI -f/u after procedure (2) Food allergy: Status: Acute Medications: Refilled omeprazole 20 mg PO BID 90 caps 3RF
--- NOTE | 2024-05-28 12:56 | PCM.PRE.AN2 ---
ASA Classification* ASA Classification ASA Classification: 2 Assessment & Plan Anesthesia* Anesthesia Assessment Anesthesia Assessment: Discussed sedation and/or anesthesia options, risks, benefits, and alternatives with patient/parents/legal guardian/POA. Questions invited. The patient/parents/legal guardian/POA seems to understand and agrees to proceed with anesthesia plan. Reviewed the physical assessment, medical history, allergy history and patient home medications list prior to surgery/procedure/anesthetic and documented any changes. Performed airway and anesthesia risk assessments. Anesthesia Type Anesthesia Type: MAC Anesthesia Focused Assessment* Temperature: 97.6 F Pulse Rate: 76 Blood Pressure: 193/76 Respiratory Rate: 16 Pulse Ox: 100 Oxygen Delivery Method: Room Air Airway Assessment Mouth opens: 2 cm Mallampati Score: III Teeth Condition: Intact Neck Range of motion (ROM): Full ROM Focused Labs Anesthesia Preop lab: CBC WBC 7.6 K/mm3 (4.4-11.0) 12/22/23 15:48 12/22/23 RBC 4.79 M/mm3 (4.2-5.4) 12/22/23 15:48 12/22/23 Hgb 13.5 g/dL (12.0-15.0) 12/22/23 15:48 12/22/23 Hct 42.5 % (37-47) 12/22/23 15:48 12/22/23 Plt Count 312 K/mm3 (150-450) 12/22/23 15:48 12/22/23 CHEMISTRY Potassium 4.1 mmol/L (3.5-5.1) 12/22/23 15:48 12/22/23 Sodium 135 mmol/L (136-145) L 12/22/23 15:48 12/22/23 Magnesium 1.9 mg/dL (1.6-2.6) 10/05/18 23:00 10/05/18 BUN 13 mg/dL (7-18) 12/22/23 15:48 12/22/23 Creatinine 0.81 mg/dL (0.55-1.02) 12/22/23 15:48 12/22/23 Glucose 96 mg/dL (74-106) 12/22/23 15:48 12/22/23 TSH 1.010 uIU/mL (0.358-3.740) 12/22/23 15:48 12/22/23 COAG Pre-Assessment Diagnosis/Proposed Procedure Planned Operative Procedure(s): EGD Anesthesia History 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 When Was Last Pacemaker Check QUESTION #4 FULL TEXT: You/Your Family Experience fever (hyperthermia) with Anesthesia Last Oral Intake Last Oral intake: Last Oral Intake NPO since 08:30 05/28/24 12:32 Meds taken in AM with sips of Yes 05/28/24 12:32 water? 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 - v block saw operator Female Yes 05/23/24 14:58 HX of Motion Sickness No 05/23/24 14:58 HX of N/V After Surgery No 05/23/24 14:58 Non-Smoker Yes 05/23/24 14:58 Duration of Surgery greater No 05/23/24 14:58 than 60 minutes Number of Risk Factors 2 05/23/24 14:58 PONV Score Moderate Risk 05/23/24 14:58 Height & Weight Height & Weight: Anesthesia: Height & Weight Height 5 ft 4 in 05/28/24 12:32 Weight: 70 kg 05/28/24 12:32 Body Mass Index (BMI) 26.4 05/28/24 12:32 Respiratory Assessment Respiratory Assessment - v block saw operator: Respiratory Tract Infection Hx - v block saw operator Hx Respiratory Tract Infection No 05/23/24 14:58 STOP Sleep Apnea STOP Sleep Apnea - v block saw operator: STOP Sleep Apnea - v block saw operator Hx Hypertension Yes: per pt, controlled on 05/23/24 14:58 meds Hx Sleep Apnea No 05/23/24 14:58 CPAP BIPAP Do you snore loudly (louder No 05/23/24 14:58 than talking or can be heard Do you often feel tired/ No 05/23/24 14:58 fatigued/ sleepy during daytime? Has anyone observed you stop No 05/23/24 14:58 breathing during sleep? STOP Results Negative 05/23/24 14:58 QUESTION #5 FULL TEXT : Do you snore loudly (louder than talking or can be heard through closed doors)? 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 Specify any problems Hx of Preganancy in last 3 No 05/23/24 14:58 Months Nurse Filling Out Transfusion MGRIFFITH 05/23/24 14:58 & Questions: Date: 05/23/24 05/23/24 14:58 Time: 15:02 05/23/24 14:58 Patient unable to answer at this time (ie. confused, unrespo /Reproduction History /Reproductive History - v block saw operator: /Reproductive Hx- v block saw operator Hx Now No 05/23/24 14:58 Gestational Age (in weeks): EDC: Hx Hx Para Hx Section SAB No 05/23/24 14:58 [employer] Medical History History of echocardiogram Wears glasses High cholesterol Difficulty swallowing Gastric reflux Shortness of breath on exertion Non-smoker Hoarseness [place]'s syndrome History of deviated nasal septum Syncope HTN (hypertension) Home Medications ?Medication ?Instructions ?Recorded ?Last Taken ?Type losartan 50 mg tablet 50 mg PO DAILY 08/18/22 05/28/24 History multivitamin 1 tab PO DAILY 08/18/22 Unknown History omeprazole 40 mg capsule,delayed 40 mg PO DAILY 08/18/22 Unknown History release pravastatin 20 mg tablet 20 mg PO QHS 08/18/22 Unknown History omeprazole 20 mg capsule,delayed 20 mg PO BID #90 caps 03/12/24 Unknown Rx release zicam 3 tab PO DAILY 05/23/24 Unknown History Allergy/AdvReac Type Severity Reaction Status Date / Time No Known Allergies Allergy Verified 05/28/24 12:31 Surgical History History of esophagogastroduodenoscopy (EGD) History of colonoscopy History of mandibular surgery Hx of tubal ligation History of carpal tunnel release Hx of appendectomy History of hip surgery Social History Smoking Status: Never smoker alcohol intake: never Review of Systems (Anesthesia) ROS Narrative System reviewed and no additional complaints, except as documented.
--- NOTE | 2024-05-28 13:15 | EGD_PTH ---
PATIENT: KARINA SAEZ LOC: EN U#:[id number] AGE/SX: 69/F ROOM: RE05/28/[address]: Dr. Guillermo Lazcano DO : 1955 BED: DIS: 05/28/2024 SPEC #: [id number] RECD: 05/28/24 15:12 STATUS: GLO YAMIL #: [id number] MIRANDA: 05/28/24 13:[address]: Guillermo Lazcano DEPT: SURGICAL PATHOLOGY RECD BY: Evelia Vital ENTERED: 05/29/24 07:42 SP TYPE: EGD BIOPSY BERNARDINO DR: Dr. Shagufta Fountain MD Tissues: A - Esophagus, NOS B - Gastric mucous membrane C - Duodenum, NOS Procedures: Surgery Specimen Level IV HEADER OPERATION: EGD biopsy PRE-OP DIAGNOSIS: Esophageal dysfunction, food allergy TISSUE SUBMITTED: A- Random esophagus biopsy, B- Gastric body biopsy, C- Duodenum biopsy MICROSCOPIC DIAGNOSIS A. Esophagus, random, biopsy: * Benign squamous mucosa negative for eosinophils. B. Stomach, body, biopsy: * Oxyntic mucosa with mild chronic inflammation. * Negative for Helicobacter-like organisms (routine H&E stain). C. Duodenum, biopsy: * Normal villous morphology with Raquel gland hyperplasia. * Negative for increased intraepithelial lymphocytes. MICROSCOPIC DESCRIPTION Slides are reviewed. GROSS DESCRIPTION A. Received in fixative is one container labeled with the patient's name and designated Random esophagus biopsy. The specimen consists of two irregular fragments of light calderon soft tissue that in aggregate measure 0.6 x 0.5 x 0.1 cm. The specimen is totally submitted in one cassette. B. Received in fixative is one container labeled with the patient's name and designated Gastric body biopsy. The specimen consists of two irregular fragments of light calderon soft tissue that in aggregate measure 0.9 x 0.4 x 0.1 cm. The specimen is totally submitted in one cassette. C. Received in fixative is one container labeled with the patient's name and designated Duodenum biopsy. The specimen consists of two irregular fragments of light calderon soft tissue that in aggregate measure 0.8 x 0.5 x 0.2 cm. The specimen is totally submitted in one cassette. MS/mr 05/29/2024 CPT:28815g6
--- NOTE | 2024-05-28 13:20 | PCM.POST.ANE ---
Anesthesia: Postop Eval I Current Vital Signs Temperature: 97 F Pulse Rate: 73 Blood Pressure: 163/75 Respiratory Rate: 14 Pulse Ox: 98 Oxygen Delivery Method: Room Air Assessment Airway patent: No Spontaneous unlabored respirations: No Mental status: Awake nausea: No Vomiting: No Anesthesia Complication: No Fluid Hydration Crystalloid volume administer (ml): 10 Total IV fluid infused: 10 Progress Note Anesthesia document: Postop Eval 1 completed: Yes
--- NOTE | 2024-05-28 13:28 | OP.CCLET_ITS ---
05/28/2024 Shagufta Fountain Md Re : Upper GI endoscopy procedure for Soniya Palumbo Dear Essie This procedure was performed on Tuesday, May 28, 2024. My impressions and recommendations are as follows: Impressions : - Normal nasopharynx. - Normal oropharynx. - Normal hypopharynx. - Normal larynx. However there was acid seen in the oropharynx at the back of the mouth. - Esophageal mucosal changes suggestive of eosinophilic esophagitis. - Congestive gastropathy. Biopsied. - Normal second portion of the duodenum. Biopsied. - Biopsies were taken with a cold forceps for evaluation of eosinophilic esophagitis. Recommendations : - Discharge patient to home. - Resume previous diet. - Continue present medications. - Await pathology results. - Trial of 40 mg of omeprazole twice daily +25 mg amitriptyline at night. If that is unsuccessful then she may need Botox to her upper esophageal sphincter or oropharynx for globus hystericus. A decrease in UES pressure by botulinum toxin can lead to resolution of the globus sensation. My findings are described in the full procedure note, which is enclosed. If I can be of further assistance, please feel free to contact me at . Sincerely, Guillermo Lazcano, 05/28/2024 1:28:04 PM This report has been signed electronically.
--- NOTE | 2024-05-28 13:28 | OP.EGD_ITS ---
Patient Name: Soniya Palumbo Procedure Date: 05/28/2024 12:49 PM Date of : 1955 Age: 69 Procedure: Upper GI endoscopy Indications: Dysphagia Providers: DO Julisa Aguilera MD: Shagufta Fountain Md Medicines: Monitored Anesthesia Care Patient Profile: This is a 69 year old female. Refer to note in patient chart for documentation of history and physical. Patient has symptoms of chronic dysphagia. Complications: No immediate complications. Procedure: Pre-Anesthesia Assessment: - Prior to the procedure, a History and Physical was performed, and patient medications and allergies were reviewed. The patient is competent. The risks and benefits of the procedure and the sedation options and risks were discussed with the patient. All questions were answered and informed consent was obtained. Patient identification and proposed procedure were verified by the physician in the pre-procedure area. Mental Status Examination: alert and oriented. Airway Examination: normal oropharyngeal airway and neck mobility. Respiratory Examination: clear to auscultation. CV Examination: normal. Prophylactic Antibiotics: The patient does not require prophylactic antibiotics. Prior Anticoagulants: The patient has taken no anticoagulant or antiplatelet agents except for NSAID medication. ASA Grade Assessment: II - A patient with mild systemic disease. After reviewing the risks and benefits, the patient was deemed in satisfactory condition to undergo the procedure. The anesthesia plan was to use monitored anesthesia care (MAC). Immediately prior to administration of medications, the patient was re-assessed for adequacy to receive sedatives. The heart rate, respiratory rate, oxygen saturations, blood pressure, adequacy of pulmonary ventilation, and response to care were monitored throughout the procedure. The physical status of the patient was re-assessed after the procedure. After obtaining informed consent, the endoscope was passed under direct vision. Throughout the procedure, the patient's blood pressure, pulse, and oxygen saturations were monitored continuously. The Endoscope was introduced through the mouth, and advanced to the second part of duodenum. The upper GI endoscopy was accomplished without difficulty. The patient tolerated the procedure well. Scope In: 1:07:42 PM Scope Out: 1:13:37 PM Total Procedure Duration Time 0 hours 5 minutes 55 seconds Findings: The nasopharynx was normal. The oropharynx was normal. The hypopharynx was normal. The larynx was normal. However there was acid seen in the oropharynx at the back of the mouth. Mucosal changes including ringed esophagus were found in the proximal esophagus and in the mid esophagus. Biopsies were obtained from the proximal and distal esophagus with cold forceps for histology of suspected eosinophilic esophagitis. Verification of patient identification for the specimen was done. Estimated blood loss was minimal. Diffuse moderately congested mucosa was found in the entire examined stomach. Biopsies were taken with a cold forceps for histology. Verification of patient identification for the specimen was done. Estimated blood loss was minimal. Biopsies were taken with a cold forceps for Helicobacter pylori testing. Verification of patient identification for the specimen was done. Estimated blood loss was minimal. The second portion of the duodenum was normal. Biopsies were taken with a cold forceps for histology. Verification of patient identification for the specimen was done. Estimated blood loss was minimal. Impression: - Normal nasopharynx. - Normal oropharynx. - Normal hypopharynx. - Normal larynx. However there was acid seen in the oropharynx at the back of the mouth. - Esophageal mucosal changes suggestive of eosinophilic esophagitis. - Congestive gastropathy. Biopsied. - Normal second portion of the duodenum. Biopsied. - Biopsies were taken with a cold forceps for evaluation of eosinophilic esophagitis. Recommendation: - Discharge patient to home. - Resume previous diet. - Continue present medications. - Await pathology results. - Trial of 40 mg of omeprazole twice daily +25 mg amitriptyline at night. If that is unsuccessful then she may need Botox to her upper esophageal sphincter or oropharynx for globus hystericus. A decrease in UES pressure by botulinum toxin can lead to resolution of the globus sensation. Procedure Code(s): --- Professional --- 68015, Esophagogastroduodenoscopy, flexible, transoral; with biopsy, single or multiple CPT copyright 2021 [employer]. All rights reserved. The codes documented in this report are preliminary and upon game engineer review may be revised to meet current compliance requirements. Guillermo Lazcano DO 05/28/2024 1:28:04 PM This report has been signed electronically. Number of Addenda: 0 Note Initiated On: 05/28/2024 12:49 PM
--- NOTE | 2024-05-28 15:03 | POSTOPAN2_ITS ---
Anesthesia Postop Eval I Sum Postop Eval Completion status Anesthesia document: Postop Eval 1 completed: Yes Anesthesia Postop Eval I Summary Anesthesia Postop Eval I Summary: Anesthesia Postop Eval I: Assessment Summary Airway patent No 05/28/24 13:20 [email or web address] Spontaneous unlabored No 05/28/24 13:20 PROBATION [email or web address] respirations Mental status Awake 05/28/24 13:20 PROBATION [email or web address] nausea No 05/28/24 13:20 PROBATION [email or web address] Vomiting No 05/28/24 13:20 [email or web address] Anesthesia Postop Eval I: Fluid Summary Crystalloid volume administer 10 05/28/24 13:20 [email or web address] (ml) Colloids volume administered ( ml) Blood Product volume administered (ml) Total IV fluid infused 10 05/28/24 13:20 [email or web address] Anesthesia Postop Eval I: Summary Notes Anesthesia Complication No 05/28/24 13:20 [email or web address] Anesthesia Complication Comment: Post-operative progress note Anesthesia: Postop Eval II Evaluation Mental status: Awake Pain Level: 0 nausea: No Vomiting: No
--- NOTE | 2024-05-28 15:03 | PCM.POSTANE2 ---
Anesthesia Postop Eval I Sum Postop Eval Completion status Anesthesia document: Postop Eval 1 completed: Yes Anesthesia Postop Eval I Summary Anesthesia Postop Eval I Summary: Anesthesia Postop Eval I: Assessment Summary Airway patent No 05/28/24 13:20 HSE [email or web address] Spontaneous unlabored No 05/28/24 13:20 HSE COORDINATOR.[email or web address] respirations Mental status Awake 05/28/24 13:20 HSE COORDINATOR.HBARR nausea No 05/28/24 13:20 HSE COORDINATOR.HBARR Vomiting No 05/28/24 13:20 HSE COORDINATOR.HBARR Anesthesia Postop Eval I: Fluid Summary Crystalloid volume administer 10 05/28/24 13:20 HSE [email or web address].HBARR (ml) Colloids volume administered ( ml) Blood Product volume administered (ml) Total IV fluid infused 10 05/28/24 13:20 HSE COORDINATOR.HBARR Anesthesia Postop Eval I: Summary Notes Anesthesia Complication No 05/28/24 13:20 HSE [email or web address].HBARR Anesthesia Complication Comment: Post-operative progress note Anesthesia: Postop Eval II Evaluation Mental status: Awake Pain Level: 0 nausea: No Vomiting: No
== END 2024-05-28 14:15 | disposition home or self-care (01) ==
LOC: EN 12:20 → AC 12:22
PROVIDERS: PCP Student in an Organized Health Care Education/Training Program; Referring Provider Student in an Organized Health Care Education/Training Program; Visit Provider Internal Medicine Gastroenterology
PROC: 0DJ08ZZ Inspection of Upper Intestinal Tract, Via Natural or Artificial Opening Endoscopic (ICD-10-PCS; CPT 43235; principal; 2024-05-28 13:10)
DX: R13.10 Dysphagia, unspecified (principal); K76.6 Portal hypertension; K22.4 Dyskinesia of esophagus; K21.9 Gastro-esophageal reflux disease without esophagitis; I10 Essential (primary) hypertension; E78.00 Pure hypercholesterolemia, unspecified; Z79.899 Other long term (current) drug therapy; Z98.51 Tubal ligation status; Z90.49 Acquired absence of other specified parts of digestive tract; T78.1XXA Other adverse food reactions, not elsewhere classified, initial encounter; K31.A0 Gastric intestinal metaplasia, unspecified; K31.89 Other diseases of stomach and duodenum
CPT/HCPCS: 43239; 88305; A4216

== ENCOUNTER 2024-08-14 09:50 | Day surgery (SDC) | payer MEDICARE, SELFPAY ==
[2024-08-14] VITALS (7 sets, daily range): BP systolic 118–182; BP diastolic 55–68; PULSE 66–80; RESP 16–18; TEMP 36.2–36.7; O2SAT 96–98; BMI 25.7
--- NOTE | 2024-08-14 10:22 | PCM.PRE.AN2 ---
ASA Classification* ASA Classification ASA Classification: 2 Assessment & Plan Anesthesia* Anesthesia Assessment Anesthesia Assessment: Discussed sedation and/or anesthesia options, risks, benefits, and alternatives with patient/parents/legal guardian/POA. Questions invited. The patient/parents/legal guardian/POA seems to understand and agrees to proceed with anesthesia plan. Reviewed the physical assessment, medical history, allergy history and patient home medications list prior to surgery/procedure/anesthetic and documented any changes. Performed airway and anesthesia risk assessments. Anesthesia Type Anesthesia Type: MAC Anesthesia Focused Assessment* Airway Assessment Mouth opens: >3 cm Mallampati Score: II Focused Labs Anesthesia Preop lab: CBC WBC 7.6 K/mm3 (4.4-11.0) 12/22/23 15:48 12/22/23 RBC 4.79 M/mm3 (4.2-5.4) 12/22/23 15:48 12/22/23 Hgb 13.5 g/dL (12.0-15.0) 12/22/23 15:48 12/22/23 Hct 42.5 % (37-47) 12/22/23 15:48 12/22/23 Plt Count 312 K/mm3 (150-450) 12/22/23 15:48 12/22/23 CHEMISTRY Potassium 4.1 mmol/L (3.5-5.1) 12/22/23 15:48 12/22/23 Sodium 135 mmol/L (136-145) L 12/22/23 15:48 12/22/23 Magnesium 1.9 mg/dL (1.6-2.6) 10/05/18 23:00 10/05/18 BUN 13 mg/dL (7-18) 12/22/23 15:48 12/22/23 Creatinine 0.81 mg/dL (0.55-1.02) 12/22/23 15:48 12/22/23 Glucose 96 mg/dL (74-106) 12/22/23 15:48 12/22/23 TSH 1.010 uIU/mL (0.358-3.740) 12/22/23 15:48 12/22/23 COAG Pre-Assessment Diagnosis/Proposed Procedure Planned Operative Procedure(s): EGD W/ BOTOX Anesthesia History Anesthesia History - head correction officer: Anesthesia History - head correction officer Hx Hospitalization No 08/12/24 15:31 Any Problems With Anesthesia No 08/12/24 15:31 Cholinesterase deficiency No 08/12/24 15:31 You/Your Family Experience No 08/12/24 15:31 fever (hyperthermia) with Relationship Recent Exposure to Contagious No 05/28/24 12:32 Disease Does patient have nerve No 08/12/24 15:31 stimulator Patient instructed to have device shut off --Does patient have Pacemaker or ICD? When Was Last Pacemaker Check QUESTION #4 FULL TEXT: You/Your Family Experience fever (hyperthermia) with Anesthesia Last Oral Intake Last Oral intake: Last Oral Intake NPO since Meds taken in AM with sips of water? Meds patient instructed to take am of surgery PONV PONV - head correction officer: PONV - head correction officer Female Yes 08/12/24 15:31 HX of Motion Sickness No 08/12/24 15:31 HX of N/V After Surgery No 08/12/24 15:31 Non-Smoker Yes 08/12/24 15:31 Duration of Surgery greater No 08/12/24 15:31 than 60 minutes Number of Risk Factors 2 08/12/24 15:31 PONV Score Moderate Risk 08/12/24 15:31 Height & Weight Height & Weight: Anesthesia: Height & Weight Height 5 ft 4 in 08/06/24 08:03 Respiratory Assessment Respiratory Assessment - head correction officer: Respiratory Tract Infection Hx - head correction officer Hx Respiratory Tract Infection Yes: RECENT BRONCHITIS, AB 08/12/24 15:31 FINISHED 08/11/24, DR. KENDALL 'S OFFICE AWARE STOP Sleep Apnea STOP Sleep Apnea - head correction officer: STOP Sleep Apnea - head correction officer Hx Hypertension Yes: per pt, controlled on 08/12/24 15:31 meds Hx Sleep Apnea No 08/12/24 15:31 CPAP BIPAP Do you snore loudly (louder No 08/12/24 15:31 than talking or can be heard Do you often feel tired/ No 08/12/24 15:31 fatigued/ sleepy during daytime? Has anyone observed you stop No 08/12/24 15:31 breathing during sleep? STOP Results Negative 08/12/24 15:31 QUESTION #5 FULL TEXT : Do you snore loudly (louder than talking or can be heard through closed doors)? Tobacco Use History Tobacco Use History - head correction officer: Tobacco Use History - head correction officer Tobacco Use Smoking Status Never smoker 08/12/24 15:31 Hx Tobacco Use No 08/12/24 15:31 Years Smoking Packs Smoked per Day Smoking Cessation Date was within the last 15 years Hx Smoking Cessation Date Hx Smoking Cessation Counseling Hematologic Medial History Hematologic Hx - head correction officer: Hematologic Medical Hx - planning feeder Hx of Blood Transfusion No 08/12/24 15:31 Hx of Transfusion in last 3 No 08/12/24 15:31 Months Date of Last Transfusion (if within last 3 months) Ever experience any problems No 08/12/24 15:31 with transfusion(s)? Specify any problems Hx of Preganancy in last 3 No 08/12/24 15:31 Months Nurse Filling Out Transfusion VCHRISTIN 08/12/24 15:31 & Questions: Date: 08/12/24 08/12/24 15:31 Time: 15:33 08/12/24 15:31 Patient unable to answer at this time (ie. confused, unrespo /Reproduction History /Reproductive History - head correction officer: /Reproductive Hx- head correction officer Hx Now No 08/12/24 15:31 Gestational Age (in weeks): EDC: Hx Hx Para Hx Section SAB No 08/12/24 15:31 Active Medications Active Medications: Current Medications Generic Name Dose Route Start Last Admin Trade Name Freq PRN Reason Stop Dose Admin Lactated Ringer's 1,000 mls @ 15 mls/hr 08/14/24 10:15 IV .Q48H ELEANOR PFSH Medical History History of steroid therapy History of echocardiogram Wears glasses High cholesterol Difficulty swallowing Gastric reflux Shortness of breath on exertion Non-smoker Hoarseness Augustine's syndrome History of deviated nasal septum Syncope HTN (hypertension) Home Medications ?Medication ?Instructions ?Recorded ?Last Taken ?Type losartan 50 mg tablet 50 mg PO DAILY 08/18/22 05/28/24 History multivitamin 1 tab PO DAILY 08/18/22 Unknown History omeprazole 40 mg capsule,delayed 40 mg PO BID 08/18/22 Unknown History release pravastatin 20 mg tablet 20 mg PO QHS 08/18/22 Unknown History benzonatate 100 mg capsule 100 mg PO BID-TID PRN cough #15 08/06/24 Unknown Rx caps Allergy/AdvReac Type Severity Reaction Status Date / Time No Known Allergies Allergy Verified 08/12/24 15:27 Surgical History History of esophagogastroduodenoscopy (EGD) History of colonoscopy History of mandibular surgery Hx of tubal ligation History of carpal tunnel release Hx of appendectomy History of hip surgery Social History Smoking Status: Never smoker alcohol intake: never Review of Systems (Anesthesia) ROS Narrative System reviewed and no additional complaints, except as documented.
[2024-08-14] MEDS: Lactated Ringers 1,000 ML 15 ML IV (10:28)
--- NOTE | 2024-08-14 11:21 | HP.PCM_ITS ---
HPI - General General Date of Admission: 08/14/24 Date of Service: 08/14/24 Chief Complaint: dysphagia HPI Narrative KARINA SAEZ, is a 69 F who presents for evaluation of globus sensation and intermittent dysphagia [facility] established Nov 2023 with complaints of globus sensation for years. Extensive work up in [address] neck, barium esophagram and EGD with Olvera without identifed etiology. *start amitriptyline *hives form amitriptyline, started baclofen Biochemical work up; CBC wnl, Cmp wnl, IBD wnl, celiac wnl RAST food allergy; Beef .19 H, [place] .37 H, Cows milk 1.81 H, egg whole 2.27 H, Peanut 1.43 H, Soybean .71 H, wheat 1.23 H Last OV 12.17.24 Continued globus sensation. Avoidance of food allergies with no benefit. TCA and baclofen not helpful Last EGD in 2010 EGD 3.4.25;- Normal nasopharynx. - Normal oropharynx. - Normal hypopharynx. - Normal larynx. However there was acid seen in the oropharynx at the back of the mouth. - Esophageal mucosal changes suggestive of eosinophilic esophagitis. - Congestive gastropathy. Biopsied. - Normal second portion of the duodenum. Biopsied. - Biopsies were taken with a cold forceps for evaluation of eosinophilic esophagitis. Nornal biopsies OV 3.11.25 Pt continues to have globus sensation. She has avoided food allergies for 6 weeks which did not give her any relief. She is going to [place] today and will not be back for one month; she does not want to try any new medications until she is back. [facility] Medical History (Updated 08/14/24 @ 11:[address] Li Friend, DO) History of steroid therapy History of echocardiogram Wears glasses High cholesterol Difficulty swallowing Gastric reflux Shortness of breath on exertion Non-smoker Hoarseness [place]'s syndrome History of deviated nasal septum Syncope HTN (hypertension) Home Medications ?Medication ?Instructions ?Recorded ?Last Taken ?Type losartan 50 mg tablet 50 mg PO DAILY 08/18/2207/26 07:30 History multivitamin 1 tab PO DAILY 08/18/22 Unkn own History omeprazole 40 mg capsule,delayed 40 mg PO BID 08/18/22 Unknown History release pravastatin 20 mg tablet 20 mg PO QHS 08/18/22 Unknow n History benzonatate 100 mg capsule 100 mg PO BID-TID PRN cough #15 08/06/24 Unknown Rx caps Allergy/AdvReac Type Severity Reaction Status Date / Time No Known Allergies Allergy Verified 08/14/24 10:24 Surgical History History of esophagogastroduodenoscopy (EGD) History of colonoscopy History of mandibular surgery Hx of tubal ligation History of carpal tunnel release Hx of appendectomy History of hip surgery Social History Smoking Status: Never smoker alcohol intake: never ROS Constitutional Constitutional: Denies fatigue, fever(s), poor appetite, weight gain or weight loss Gastrointestinal Gastrointestinal: Denies belching, bloating, change in bowel habits, change in stool character, chewing difficulty, coffee ground emesis, constipation, cramping, diarrhea, dyspepsia, dysphagia, early satiety, excessive flatus, fecal incontinence, heartburn, hematemesis, hematochezia, hemorrhoids, loose stools, melena, nausea, odynophagia, rectal bleeding, tenesmus, vomiting or weight changes Vital Signs Vital Signs Vital Signs: 08/14/24 10:25 08/14/24 10:25 Temperature 98.1 F Temperature Source Temporal Pulse Rate 80 Respiratory Rate 18 Respiratory Pattern Normal Blood Pressure 182/68 H Blood Pressure Mean 106 Blood Pressure Source Monitor Blood Pressure Position Sitting Blood Pressure Location Left Arm Pulse Ox 97 Oxygen Delivery Method Room Air Weight Weight: 149 lb 14.629 oz Body Mass Index (BMI) 25.7 Physical Exam Const alert, oriented x3, no apparent distress and healthy appearing General Appearance: cooperative GI normal to inspection, nondistended, normoactive bowel sounds, soft to palpation, non-tender and non-distended Percussion: normal to percussion Rectal Exam: deferred Assessment & Plan Assessment/Plan (1) Food allergy: (2) Difficulty swallowing: PLAN: Assessment and Plan Assessment and Plan (1) Esophageal dysfunction: Status: Acute Plan: Pt is a 69 yp female pt here today for f/u after EGD. EGD revealed chronic inflammation in the esophagus, stomach and duodenum. Biopsies for EOE were normal. Dr. Lazcano recommended increasing the PPI to 40 mg twice a day and starting amitriptyline 25 mg daily however she has been on TCA before and this caused rash and restless legs. She does not want to try this again. She has tried avoidance of food allergens for 6 weeks with no relief to her symptoms. Dr. Lazcano also recommended botox injection to decrease the UES pressure. She would like to try this and will be scheduled for EGD with botox injection today. -EGD with botox -f/u after procedure (2) Food allergy: Status: Acute
[2024-08-14] MEDS: Botulinum Toxin A 100 Units Vial IJ (11:29)
[2024-08-14] MEDS: 0.9% Normal Saline (Pres. free 10 ML Vial (11:30)
--- NOTE | 2024-08-14 11:42 | OP.EGD_ITS ---
Patient Name: Soniya Palumbo Procedure Date: 08/14/2024 11:17 AM Date of : 1955 Age: 69 Procedure: Upper GI endoscopy Indications: Dysphagia Providers: DO Julisa Aguilera MD: Shagufta Fountain Md Medicines: Monitored Anesthesia Care Patient Profile: This is a 69 year old female. Refer to note in patient chart for documentation of history and physical. Patient has symptoms of dysphagia with both liquids and solids. Complications: No immediate complications. Procedure: Pre-Anesthesia Assessment: - Prior to the procedure, a History and Physical was performed, and patient medications and allergies were reviewed. The patient is competent. The risks and benefits of the procedure and the sedation options and risks were discussed with the patient. All questions were answered and informed consent was obtained. Patient identification and proposed procedure were verified by the physician in the pre-procedure area. Mental Status Examination: alert and oriented. Airway Examination: normal oropharyngeal airway and neck mobility. Respiratory Examination: clear to auscultation. CV Examination: normal. Prophylactic Antibiotics: The patient does not require prophylactic antibiotics. Prior Anticoagulants: The patient has taken no anticoagulant or antiplatelet agents except for NSAID medication. ASA Grade Assessment: II - A patient with mild systemic disease. After reviewing the risks and benefits, the patient was deemed in satisfactory condition to undergo the procedure. The anesthesia plan was to use monitored anesthesia care (MAC). Immediately prior to administration of medications, the patient was re-assessed for adequacy to receive sedatives. The heart rate, respiratory rate, oxygen saturations, blood pressure, adequacy of pulmonary ventilation, and response to care were monitored throughout the procedure. The physical status of the patient was re-assessed after the procedure. After obtaining informed consent, the endoscope was passed under direct vision. Throughout the procedure, the patient's blood pressure, pulse, and oxygen saturations were monitored continuously. The gastroscope was introduced through the mouth, and advanced to the second part of duodenum. The upper GI endoscopy was accomplished without difficulty. The patient tolerated the procedure well. Scope In: 11:28:04 AM Scope Out: 11:36:08 AM Total Procedure Duration Time 0 hours 8 minutes 4 seconds Findings: One benign-appearing, intrinsic moderate stenosis was found 20 to 23 cm from the incisors. This stenosis measured 5 cm (in length). The stenosis was traversed. A guidewire was placed and the scope was withdrawn. Dilation was performed with a Savary dilator with no resistance at 57 Fr. The dilation site was examined and showed moderate improvement in luminal narrowing. Estimated blood loss was minimal. Abnormal motility was noted at the cricopharyngeus and in the upper third of the esophagus. The cricopharyngeus was abnormal. There is spasticity of the esophageal body. The distal esophagus/lower esophageal sphincter is open. Area was successfully injected with 100 units botulinum toxin. No gross lesions were noted in the entire examined stomach. No gross lesions were noted in the entire examined duodenum. Impression: - Benign-appearing esophageal stenosis. Dilated. - Abnormal esophageal motility, consistent with achalasia. Injected with botulinum toxin. - No gross lesions in the entire stomach. - No gross lesions in the entire examined duodenum. - No specimens collected. Recommendation: - Discharge patient to home. - Resume previous diet. - Continue present medications. Procedure Code(s): --- Professional --- 66779, Esophagogastroduodenoscopy, flexible, transoral; with insertion of guide wire followed by passage of dilator(s) through esophagus over guide wire 03289, 59,51, Esophagogastroduodenoscopy, flexible, transoral; with directed submucosal injection(s), any substance CPT copyright 2 [employer]. All rights reserved. The codes documented in this report are preliminary and upon machine precision engraver review may be revised to meet current compliance requirements. Guillermo Lazcano DO 08/14/2024 11:42:22 AM This report has been signed electronically. Number of Addenda: 0 Note Initiated On: 08/14/2024 11:17 AM
--- NOTE | 2024-08-14 11:42 | OP.CCLET_ITS ---
08/14/2024 Shagufta Fountain Md Re : Upper GI endoscopy procedure for Soniya Palumbo Dear Essie This procedure was performed on Wednesday, August 14, 2024. My impressions and recommendations are as follows: Impressions : - Benign-appearing esophageal stenosis. Dilated. - Abnormal esophageal motility, consistent with achalasia. Injected with botulinum toxin. - No gross lesions in the entire stomach. - No gross lesions in the entire examined duodenum. - No specimens collected. Recommendations : - Discharge patient to home. - Resume previous diet. - Continue present medications. My findings are described in the full procedure note, which is enclosed. If I can be of further assistance, please feel free to contact me at . Sincerely, Guillermo Lazcano, 08/14/2024 11:42:22 AM This report has been signed electronically.
--- NOTE | 2024-08-14 11:47 | PCM.POST.ANE ---
Anesthesia: Postop Eval I Current Vital Signs Temperature: 97.1 F Pulse Rate: 72 Blood Pressure: 118/57 Respiratory Rate: 16 Pulse Ox: 97 Oxygen Delivery Method: Room Air Assessment Airway patent: Yes Spontaneous unlabored respirations: Yes Mental status: Awake and Calm nausea: No Vomiting: No Anesthesia Complication: No Fluid Hydration Crystalloid volume administer (ml): 300 Total IV fluid infused: 300 Progress Note Anesthesia document: Postop Eval 1 completed: Yes
--- NOTE | 2024-08-14 11:48 | PCM.POSTANE2 ---
Anesthesia Postop Eval I Sum Postop Eval Completion status Anesthesia document: Postop Eval 1 completed: Yes Anesthesia Postop Eval I Summary Anesthesia Postop Eval I Summary: Anesthesia Postop Eval I: Assessment Summary Airway patent Yes 08/14/24 11:48 [email or web address] Spontaneous unlabored Yes 08/14/24 11:48 [email or web address] respirations Mental status Awake,Calm 08/14/24 11:48 [email or web address] nausea No 08/14/24 11:48 [email or web address] Vomiting No 08/14/24 11:48 [email or web address] Anesthesia Postop Eval I: Fluid Summary Crystalloid volume administer 300 08/14/24 11:48 [email or web address] (ml) Colloids volume administered ( ml) Blood Product volume administered (ml) Total IV fluid infused 300 08/14/24 11:48 [email or web address] Anesthesia Postop Eval I: Summary Notes Anesthesia Complication No 08/14/24 11:48 [email or web address] Anesthesia Complication Comment: Post-operative progress note Anesthesia: Postop Eval II Evaluation Mental status: Awake Pain Level: 0 nausea: No Vomiting: No
== END 2024-08-14 12:30 | disposition home or self-care (01) ==
LOC: EN 09:51 → AC 09:57
PROVIDERS: PCP Student in an Organized Health Care Education/Training Program; Referring Provider Student in an Organized Health Care Education/Training Program; Visit Provider Internal Medicine Gastroenterology
PROC: 0DJ08ZZ Inspection of Upper Intestinal Tract, Via Natural or Artificial Opening Endoscopic (ICD-10-PCS; CPT 43235; principal; 2024-08-14 10:55)
DX: K22.0 Achalasia of cardia (principal); K22.2 Esophageal obstruction; K21.9 Gastro-esophageal reflux disease without esophagitis; I10 Essential (primary) hypertension; Z79.899 Other long term (current) drug therapy
CPT/HCPCS: 43248; 43236; C1769; J0585; J2405